=== PATIENT | female | born 1990 | race American Indian/Alaskan Native ===

== ENCOUNTER 2016-10-30 19:40 | Emergency (ER) | payer MEDICAID | END 2016-10-30 23:15 | disposition left against medical advice (07) | LOC: ED 19:40 | DX: M79.89 Other specified soft tissue disorders (principal); Z53.21 Procedure and treatment not carried out due to patient leaving prior to being seen by health care provider ==

== ENCOUNTER 2016-10-31 09:16 | Emergency (ER) | payer MEDICAID ==
[2016-10-31 10:04] VITALS: BP 114/68
--- NOTE | 2016-10-31 12:21 | Emergency Department Report ---
HPI - General Chief Complaint: Headache Time Seen by Provider: 10/31/16 11:57 - HPI HPI: This is a 25-year-old female with past medical history of intermittent migraines who presents to the ED complaining of slight intermittent throbbing/ aching temporal migraine headache that is now resolved is complaining of fourth digit fingertip pain and swelling 2 days. Patient states she noticed that her right fourth digit fingernail tip is tender to touch and mildly swelling on the right side. Patient states she recently got her son other so long and thinks she got an infection from that. She denies suicidal chills/nausea/vomiting/bleeding/any injury/trauma/blurry vision or dizziness ED Past Medical Hx - Past Medical History Previous Medical History?: No - Surgical History Past Surgical History?: No - Social History Smoking Status: Never Smoker Substance Use Type: Other - Medications Home Medications: Home Medications Medication Instructions Recorded Confirmed Last Taken Type Cyclobenzaprine [Flexeril 10mg] 10 mg PO BID PRN #10 tablet 01/15/14 Unknown Rx traMADol [Ultram 50 MG tab] 50 mg PO Q6HR PRN #14 tablet 01/15/14 Unknown Rx Pseudoephed/Cod/Guaifen 5 ml PO TID #1 bottle 12/25/14 Unknown Rx [Robitussin DAC 10-100-30Mg/5Ml] Amoxicillin [Amoxicillin TAB] 875 mg PO BID #20 tablet 02/20/15 Unknown Rx Amoxicillin [Amoxicillin TAB] 875 mg PO BID #20 tablet 01/23/16 Unknown Rx Ibuprofen [Motrin 400 MG tab] 400 mg PO Q8H PRN #20 tablet 01/23/16 Unknown Rx Cephalexin [Keflex] 500 mg PO BID #10 capsule 10/31/16 Unknown Rx Ibuprofen [Motrin 800 MG tab] 800 mg PO Q8HR PRN #20 tablet 10/31/16 Unknown Rx ED Review of Systems ROS: Stated complaint: MIGRANE HEADACHE, RIGHT HAND PAIN Other details as noted in HPI Constitutional: denies: chills, fever Eyes: denies: eye pain, eye discharge, vision change ENT: denies: ear pain, throat pain Respiratory: denies: cough, shortness of breath, wheezing Cardiovascular: denies: chest pain, palpitations Endocrine: no symptoms reported Gastrointestinal: denies: abdominal pain, nausea, diarrhea Genitourinary: denies: urgency, dysuria, discharge Musculoskeletal: denies: back pain, joint swelling, arthralgia Skin: denies: rash, lesions Neurological: denies: headache, weakness, paresthesias Psychiatric: denies: anxiety, depression Hematological/Lymphatic: denies: easy bleeding, easy bruising Physical Exam - Physical Exam Vital Signs: Vital Signs 10/31/16 09:59 Temperature 98 F Pulse Rate 57 L Respiratory 18 Rate Blood Pressure 114/68 O2 Sat by Pulse 99 Oximetry Physical Exam: GENERAL: Alert and oriented x3, no apparent distress, Normal Gait, atraumatic. HEAD: Head is normocephalic and a-traumatic. LUNGS: Symetrical with respiration, No wheezing, no rales or crackles, CTAB. HEART: S1, S2 present, regular rate and rhythm without murmur, no rubs, no gallops. Non tender to palpation EXTREMITIES/MUSCULOSKELETAL: No cyanosis, clubbing, rash, lesions or edema. Full ROM bilaterally. UE/LE Pulses 2+ bilaterally. Finger joints are intact. Mild tenderness palpation of the right fourth digit. No bleeding, NEUROLOGIC: The patient is cooperative with no focal neurologic deficits. Cranial nerves II through XII are grossly intact. Normal speech. Normal sensation in bilateral upper and lower extremities, No loss of sensation, SKIN: Warm and dry, No lesions, No ulceration or induration present. ED Course Vital Signs 10/31/16 09:59 Temperature 98 F Pulse Rate 57 L Respiratory 18 Rate Blood Pressure 114/68 O2 Sat by Pulse 99 Oximetry ED Medical Decision Making - Medical Decision Making 25-year-old female presents a paronychia of the finger ED course: Discussed patient antiemetic medication as prescribed. Discussed antibiotic therapy for the nail bed infection. Discussed with the patient to follow up with primary care physician. Vital signs are normal patient is in no acute murmurs respiratory distress. Patient has a neuro deficit and is neurologically intact. Discussed to avoid stress factors at induced migraine headaches Discussed take medication as needed for headaches. Critical care attestation.: If time is entered above; I have spent that time in minutes in the direct care of this critically ill patient, excluding procedure time. ED Disposition Clinical Impression: Paronychia of finger of right hand Disposition: DC- TO HOME OR SELFCARE Is pt being admited?: No Does the pt Need Aspirin: No Condition: Stable Instructions: Paronychia (ED), Migraine Headache (ED) Additional Instructions: If worsened symptoms return to ED Follow-up to primary care physician is referred Apply heat to finger 3 times a day Prescriptions: Cephalexin [Keflex] 500 mg PO BID #10 capsule Ibuprofen [Motrin 800 MG tab] 800 mg PO Q8HR PRN #20 tablet PRN Reason: Pain Referrals: PRIMARY CARE, [Primary Care Provider] - 3-5 Days PATRICK EARL MD [Staff Physician] - 3-5 Days [facility] [Outside] - 3-5 Days [facility] [Outside] - 3-5 Days [facility] [Outside] - 3-5 Days Forms: Accompanied Note, Work/School Release Form(ED) Time of Disposition: 12:22
== END 2016-10-31 12:46 | disposition home or self-care (01) ==
LOC: ED 09:16
DX: L03.011 Cellulitis of right finger (principal)
CPT/HCPCS: 99282

== ENCOUNTER 2016-12-01 10:39 | Emergency (ER) | payer MEDICAID ==
[2016-12-01 11:26] LABS: Basophils % (Auto) 0.6 % (0.0-1.8); Eosinophils % (Auto) 0.9 % (0.0-4.3); Hematocrit 36.1 % (30.3-42.9); Hemoglobin 12.1 gm/dl (10.1-14.3); Mean Corpuscular HGB Conc 34 % (30-34); Mean Corpuscular Hemoglobin 28 pg (28-32); Mean Corpuscular Volume 83 fl (79-97); Platelet Count 263 K/mm3 (140-440); Red Blood Count 4.33 M/mm3 (3.65-5.03); Red Cell Distribution Width 14.3 % (13.2-15.2); White Blood Count 5.7 K/mm3 (4.5-11.0)
[2016-12-01 11:46] LABS: Alanine Aminotransferase 12 units/L (7-56); Albumin 3.7 g/dL (3.9-5); Alkaline Phosphatase 45 units/L (35-129); Anion Gap 16 mmol/L; BUN/Creatinine Ratio 13; Blood Urea Nitrogen 8 mg/dL (7-17); Calcium 9.1 mg/dL (8.4-10.2); Carbon Dioxide 26 mmol/L (22-30); Chloride 102.3 mmol/L (98-107); Glucose 109 mg/dL (65-100); Lipase 25 units/L (13-60); Sodium 140 mmol/L (137-145); Total Protein 7.5 g/dL (6.3-8.2)
[2016-12-01 11:54] LABS: Bacteria,Urine 1+ /HPF (Negative); Bilirubin,Urine NEG (Negative); Blood,Urine MOD (Negative); Ketones,Urine 20 mg/dL (Negative); Leukocyte Esterase,Urine TR (Negative); Mucus,Urine 3+ /HPF; Nitrite,Urine NEG (Negative); Protein,Urine <15 mg/dL mg/dL (Negative); Urobilinogen,Urine < 2.0 mg/dL (<2.0)
--- NOTE | 2016-12-01 16:37 | Emergency Department Report ---
ED Abdominal Pain HPI - General Chief Complaint: Abdominal Pain Stated Complaint: UPPER ABDOMINAL PAIN Time Seen by Provider: 12/01/16 16:23 Source: patient Mode of arrival: Ambulatory Limitations: No Limitations - History of Present Illness -: Gradual Location: diffuse Migration to: no migration Quality: cramping (GAS-TAKING GAS X) Consistency: intermittent Improves With: nothing Worsens With: nothing Context: foreign travel Associated Symptoms: constipation, other (NORCO FOR HER DENTAL PAIN). denies: nausea, vomiting, diarrhea, fever, chills, dysuria, hematemesis, hematochezia, melena, hematuria, anorexia, syncope - Related Data Previous Rx's Medication Instructions Recorded Last Taken Type Amoxicillin [Trimox CAP] 500 mg PO BID #20 capsule 12/01/16 Unknown Rx Allergies Allergy/AdvReac Type Severity Reaction Status Date / Time No Known Allergies Allergy Verified 09/19/15 02:28 ED Review of Systems ROS: Stated complaint: UPPER ABDOMINAL PAIN Other details as noted in HPI Comment: Unobtainable due to pts medical conditions Constitutional: no symptoms reported, see HPI Eyes: as per HPI ENT: as per HPI, dental pain Respiratory: no symptoms reported, see HPI Cardiovascular: as per HPI Endocrine: no symptoms reported, see HPI Gastrointestinal: as per HPI, abdominal pain, constipation. denies: nausea, vomiting, diarrhea, hematemesis, melena Genitourinary: as per HPI. denies: urgency, dysuria Musculoskeletal: as per HPI. denies: back pain Skin: as per HPI. denies: rash, lesions Neurological: as per HPI. denies: headache, weakness Psychiatric: as per HPI. denies: anxiety, depression Hematological/Lymphatic: as per HPI. denies: easy bleeding ED Past Medical Hx - Past Medical History Previous Medical History?: No - Surgical History Past Surgical History?: No - Social History Smoking Status: Current Every Day Smoker Substance Use Type: None - Medications Home Medications: Home Medications Medication Instructions Recorded Confirmed Last Taken Type Amoxicillin [Trimox CAP] 500 mg PO BID #20 capsule 12/01/16 Unknown Rx ED Physical Exam - General Limitations: No Limitations General appearance: alert - Head Head exam: Present: atraumatic - Eye Eye exam: Present: normal appearance - ENT ENT exam: Present: mucous membranes moist, other (dental caries on norco) - Neck Neck exam: Present: normal inspection - Respiratory Respiratory exam: Present: normal lung sounds bilaterally - Cardiovascular Cardiovascular Exam: Present: regular rate - GI/Abdominal GI/Abdominal exam: Present: soft, normal bowel sounds. Absent: distended, tenderness, guarding, rebound, rigid, diminished bowel sounds, hyperactive bowel sounds, hypoactive bowel sounds, organomegaly, mass, bruit, pulsatile mass , hernia - Rectal Rectal exam: Present: deferred - Extremities Exam Extremities exam: Present: normal inspection - Back Exam Back exam: Present: normal inspection - Neurological Exam Neurological exam: Present: alert, oriented X3 - Psychiatric Psychiatric exam: Present: normal affect, normal mood - Skin Skin exam: Present: warm, dry, intact ED Course Vital Signs 12/01/16 12/01/16 10:54 17:14 Temperature 98.4 F Pulse Rate 63 63 Respiratory 16 18 Rate Blood Pressure 124/66 Blood Pressure 122/68 [Left] O2 Sat by Pulse 100 100 Oximetry - Reevaluation(s) Reevaluation #1: here while her child being seen so she wanted seen too on norco for dental pain and constipated vss nad ambulatory taking po did not know norco did this in addition she reports baseline constipation labs noted exam wnl dc home w dc poc ED Medical Decision Making - Lab Data Result diagrams: 12/01/16 11:14 12/01/16 11:14 - Medical Decision Making SEE NOTE - Differential Diagnosis RO ACUTE ETIOLOGY V CONSTIPATION Critical care attestation.: If time is entered above; I have spent that time in minutes in the direct care of this critically ill patient, excluding procedure time. ED Disposition Clinical Impression: Constipation, Dental caries Disposition: DC-01 TO HOME OR SELFCARE Is pt being admited?: No Does the pt Need Aspirin: No Condition: Stable Instructions: Abdominal Pain (ED) Additional Instructions: hydrate well exercise stop pain pills OVER THE COUNTER MAG CITRATE WILL HELP YOU TO HAVE BM OVER THE COUNTER DUCOLOX SUPPOSITORY FOR CONSTIPATION PRUNE JUICE HIGH FIBER DIET MED ORDERED FOR TOOTH Prescriptions: Amoxicillin [Trimox CAP] 500 mg PO BID #20 capsule Referrals: PRIMARY CARE, [Primary Care Provider] - 3-5 Days Forms: Work/School Release Form(ED) Time of Disposition: 16:34
[2016-12-01 17:15] VITALS: BP 122/68
== END 2016-12-01 17:14 | disposition home or self-care (01) ==
LOC: ED 10:39
DX: K59.00 Constipation, unspecified (principal); K02.9 Dental caries, unspecified; F17.200 Nicotine dependence, unspecified, uncomplicated
CPT/HCPCS: 36415; 80053; 81001; 83690; 84702; 85025; 99283

== ENCOUNTER 2017-04-01 11:15 | Emergency (ER) | payer MEDICAID ==
[2017-04-01 11:23] VITALS: BP 114/71
[2017-04-01] MEDS ORDERED: TORADOL IM ONE (12:55)
--- NOTE | 2017-04-01 12:56 | Emergency Department Report ---
Blank Doc - Documentation Documentation: 26-year-old female in a medical problems with cough, body aches, sore throat 2 days. She did not receive a flu shot. She is not taking [id number] medication. She denies fever. Vital signs normal. Chest x-ray and Toradol ordered. Mid-level to see
--- NOTE | 2017-04-01 13:46 | Emergency Department Report ---
- General Chief Complaint: Upper Respiratory Infection Stated Complaint: FLU LIKE SYMPTOMS Time Seen by Provider: 04/01/17 12:54 Source: patient Mode of arrival: Ambulatory Limitations: No Limitations - History of Present Illness Initial Comments: This is a 26-year-old female nontoxic, well nourished in appearance, no acute signs of distress presents to the ED with c/o of body aches, sore throat, productive cough, rhinorrhea, and nasal congestion x2 days. Patient denies any sick contact. Patient denies getting the flu vaccine. Patient describes productive cough as yellow mucus production. Patient denies any recent travels , long car, recent hospital stays. Patient denies any calf pain or calf tenderness. Patient denies any chest pain, short of breath, fever, chills, nausea, vomiting, hemoptysis, numbness, tingling, headache or stiff neck. Patient states allergies to shellfish and olive extract. Patient denies any PMH. MD Complaint: cough, sore throat, rhinorrhea, nasal congestion, other (body aches) -: days(s) (2) Severity: mild Severity scale (0 -10): 8 Quality: aching Consistency: constant Improves With: nothing Worsens With: nothing Associated Symptoms: rhinorrhea, nasal congestion, sore throat, cough. denies: fever, chills, myalgias, diaphoresis, headache, stiff neck, chest pain, shortness of breath, abdominal pain, nausea, vomiting, diarrhea, dysuria, rash, confusion, right sweats, weight loss, epistaxis, hoarseness, ear pain Treatments Prior to Arrival: none - Related Data Previous Rx's Medication Instructions Recorded Last Taken Type Amoxicillin [Trimox CAP] 500 mg PO BID #20 capsule 12/01/16 Unknown Rx Amoxicillin [Amoxicillin TAB] 875 mg PO BID #20 tablet 04/01/17 Unknown Rx Benzonatate [Tessalon Perle] 100 mg PO Q6H PRN #30 capsule 04/01/17 Unknown Rx Ibuprofen [Motrin] 600 mg PO Q8H PRN #30 tablet 04/01/17 Unknown Rx Oseltamivir [Tamiflu] 75 mg PO BID #14 cap 04/01/17 Unknown Rx Allergies Allergy/AdvReac Type Severity Reaction Status Date / Time No Known Allergies Allergy Verified 04/01/17 11:23 ED Review of Systems ROS: Stated complaint: FLU LIKE SYMPTOMS Other details as noted in HPI Constitutional: denies: chills, fever Eyes: denies: eye pain, eye discharge, vision change ENT: throat pain. denies: ear pain Respiratory: cough. denies: shortness of breath, wheezing Cardiovascular: denies: chest pain, palpitations Endocrine: no symptoms reported Gastrointestinal: denies: abdominal pain, nausea, diarrhea Genitourinary: denies: urgency, dysuria, discharge Musculoskeletal: denies: back pain, joint swelling, arthralgia Skin: denies: rash, lesions Neurological: denies: headache, weakness, paresthesias Psychiatric: denies: anxiety, depression Hematological/Lymphatic: denies: easy bleeding, easy bruising ED Past Medical Hx - Past Medical History Previous Medical History?: No - Surgical History Past Surgical History?: No - Social History Smoking Status: Never Smoker Substance Use Type: None - Medications Home Medications: Home Medications Medication Instructions Recorded Confirmed Last Taken Type Amoxicillin [Trimox CAP] 500 mg PO BID #20 capsule 12/01/16 Unknown Rx Amoxicillin [Amoxicillin TAB] 875 mg PO BID #20 tablet 04/01/17 Unknown Rx Benzonatate [Tessalon Perle] 100 mg PO Q6H PRN #30 capsule 04/01/17 Unknown Rx Ibuprofen [Motrin] 600 mg PO Q8H PRN #30 tablet 04/01/17 Unknown Rx Oseltamivir [Tamiflu] 75 mg PO BID #14 cap 04/01/17 Unknown Rx ED Physical Exam - General Limitations: No Limitations General appearance: alert, in no apparent distress - Head Head exam: Present: atraumatic, normocephalic - Eye Eye exam: Present: normal appearance, PERRL, EOMI Pupils: Present: normal accommodation - ENT ENT exam: Present: mucous membranes moist, TM's normal bilaterally, normal external ear exam - Expanded ENT Exam Expanded Ear exam: Present: normal external inspection Mouth exam: Present: normal external inspection, tongue normal. Absent: drooling, trismus, muffled voice, tongue elevation, laceration Teeth exam: Present: normal inspection Throat exam: Positive: tonsillar erythema, tonsillomegaly (2+), other (Uvula midline. No abscess or swelling noted. ). Negative: tonsillar exudate, R peritonsillar mass, L peritonsillar mass - Neck Neck exam: Present: normal inspection, full ROM. Absent: lymphadenopathy, thyromegaly - Respiratory Respiratory exam: Present: normal lung sounds bilaterally. Absent: respiratory distress, wheezes, rales, rhonchi, stridor, chest wall tenderness, accessory muscle use, decreased breath sounds, prolonged expiratory - Cardiovascular Cardiovascular Exam: Present: regular rate, normal rhythm, normal heart sounds. Absent: irregular rhythm, systolic murmur, diastolic murmur, rubs, gallop - GI/Abdominal GI/Abdominal exam: Present: soft, normal bowel sounds. Absent: distended, tenderness, guarding, rebound, rigid, diminished bowel sounds - Rectal Rectal exam: Present: deferred - Extremities Exam Extremities exam: Present: normal inspection, full ROM, normal capillary refill. Absent: tenderness, pedal edema, joint swelling, calf tenderness - Back Exam Back exam: Present: normal inspection, full ROM. Absent: tenderness, CVA tenderness (R), CVA tenderness (L), muscle spasm, paraspinal tenderness, vertebral tenderness, rash noted - Neurological Exam Neurological exam: Present: alert, oriented X3, CN II-XII intact, normal gait, reflexes normal - Psychiatric Psychiatric exam: Present: normal affect, normal mood - Skin Skin exam: Present: warm, dry, intact, normal color. Absent: rash ED Course Vital Signs 04/01/17 04/01/17 11:20 13:07 Temperature 98.4 F Pulse Rate 92 H Respiratory 16 18 Rate Blood Pressure 114/71 O2 Sat by Pulse 98 Oximetry - Reevaluation(s) Reevaluation #1: 04/01/17 13:43 Patient is speaking in full sentences with no signs of distress noted. - Consultations Consultation #1: 04/01/17 13:43 Patient has been consulted with Dr. Adame about patient history, physical exam, and labs and examined and screened patient and agrees to ED plan of care and discharge plan of care. ED Medical Decision Making - Medical Decision Making This is a 26-year-old female that presents with upper respiratory infection, tonsillitis, and influenza. Patient is stable and was examined by me and Dr. Adame. Chest x-ray has been obtained and dictated by radiologist with normal exam. Patient is notified of x-ray results with no questions noted. Due to patient having symptoms of upper respiratory infection and worsening I will treat patient empirically amox and tamiflu. [facility] is currently out of the flu swabs so I am unable to perform flu swab. Patient is within the >72 hour window for tamiflu. Patient was instructed to increase hydration, rest and take Motrin for fever episodes. Patient received toradol in the ED. Vitals stable. Patient is nonfebrile and normal heart rate. Patient was orally hydrated and patient tolerated well known nausea or vomiting. Patient was instructed Follow-up with a primary care doctor in 3-5 days or if symptoms worsen and continue return to emergency room as soon as possible. At time time of discharge, the patient does not seem toxic or ill in appearance. No acute signs of distress noted. Patient agrees to discharge treatment plan of care. No further questions noted by the patient. Critical care attestation.: If time is entered above; I have spent that time in minutes in the direct care of this critically ill patient, excluding procedure time. ED Disposition Clinical Impression: Influenza, Tonsillitis Upper respiratory infection Qualifiers: URI type: unspecified URI Qualified Code(s): J06.9 - Acute upper respiratory infection, unspecified Disposition: DC- TO HOME OR SELFCARE Is pt being admited?: No Does the pt Need Aspirin: No Condition: Stable Instructions: Ibuprofen (By mouth), Amoxicillin (By mouth), Oseltamivir (By mouth), Electrolyte Supplement (By mouth), Fever in Adults (ED), Influenza (ED) , Upper Respiratory Infection (ED), Tonsillitis (ED) Additional Instructions: Follow-up with a primary care doctor in 3-5 days or if symptoms worsen and continue return to emergency room as soon as possible. Rest, hydrate, and take motrin for Fever as needed. Prescriptions: Amoxicillin [Amoxicillin TAB] 875 mg PO BID #20 tablet Benzonatate [Tessalon Perle] 100 mg PO Q6H PRN #30 capsule PRN Reason: Cough Ibuprofen [Motrin] 600 mg PO Q8H PRN #30 tablet PRN Reason: Fever Oseltamivir [Tamiflu] 75 mg PO BID #14 cap Referrals: PRIMARY CARE, [Primary Care Provider] - 3-5 Days ALY THOMPSON MD [Staff Physician] - 3-5 Days [facility] [Outside] - 3-5 Days [facility] [Outside] - 3-5 Days Forms: Work/School Release Form(ED)
--- NOTE | 2017-04-01 13:47 | XRay Report ---
ROUTINE CHEST, TWO VIEWS: HISTORY: Cough. The trachea, heart, mediastinal contour, lung feldman and bony thorax are unremarkable. IMPRESSION: Unremarkable chest x-ray.
== END 2017-04-01 14:21 | disposition home or self-care (01) ==
LOC: ED 11:15
DX: J11.1 Influenza due to unidentified influenza virus with other respiratory manifestations (principal); J03.90 Acute tonsillitis, unspecified
CPT/HCPCS: 71046; 96372; 99283; J1885

== ENCOUNTER 2017-05-07 19:46 | Emergency (ER) | payer MEDICAID ==
[2017-05-07 20:06] VITALS: BP 130/58
--- NOTE | 2017-05-07 20:30 | Emergency Department Report ---
Minor Respiratory - HPI Chief Complaint: Sore Throat Stated Complaint: SORE THROAT Time Seen by Provider: 05/07/17 20:24 Duration: 1 week Pain Location: Facial Severity: mild Minor Respiratory: Yes Rhinorrhea, Yes Sore Throat, Yes Able to Tolerate Fluids , Yes Cough, Yes Sick Contacts, No Ear Pain, No Hemoptysis, No Chest Pain, No Shortness of Breath, No Fever Other History: Healthy 26-year-old female presents with nasal congestion cough and scratchy throat ED Review of Systems ROS: Stated complaint: SORE THROAT Other details as noted in HPI Constitutional: denies: fever, malaise ENT: throat pain. denies: ear pain Respiratory: cough Cardiovascular: denies: chest pain Gastrointestinal: denies: abdominal pain, nausea, vomiting ED Past Medical Hx - Past Medical History Previous Medical History?: No - Surgical History Past Surgical History?: No - Social History Smoking Status: Never Smoker Substance Use Type: None - Medications Home Medications: Home Medications Medication Instructions Recorded Confirmed Last Taken Type Amoxicillin [Trimox CAP] 500 mg PO BID #20 capsule 12/01/16 Unknown Rx Amoxicillin [Amoxicillin TAB] 875 mg PO BID #20 tablet 04/01/17 Unknown Rx Benzonatate [Tessalon Perle] 100 mg PO Q6H PRN #30 capsule 04/01/17 Unknown Rx Ibuprofen [Motrin] 600 mg PO Q8H PRN #30 tablet 04/01/17 Unknown Rx Oseltamivir [Tamiflu] 75 mg PO BID #14 cap 04/01/17 Unknown Rx Minor Respiratory Exam - Exam General: Vital signs noted. No distress. Alert and acting appropriately. HEENT: Yes Moist Mucous Membranes, Yes Rhinorrhea, No Pharyngeal Erythema, No Pharyngeal Exudates, No Conjuctival Injection Neck: Yes Supple Lungs: Yes Good Air Exchange, No Wheezes, No Ronchi, No Stridor, No Cough, No Labored Respirations, No Retractions, No Use of Accessory Muscles, No Other Abnormal Lung Sounds Heart: Yes Regular, No Murmur Abdomen: No Tenderness Neurologic: Alert and oriented, no deficits. Musculoskeletal: Unremarkable. ED Course Vital Signs 05/07/17 20:04 Temperature 97.9 F Pulse Rate 86 Respiratory 14 Rate Blood Pressure 130/58 O2 Sat by Pulse 100 Oximetry ED Medical Decision Making - Medical Decision Making Ms. Casillas presents with scratchy throat due to postnasal drip. Recommended loratadine or Zyrtec [id number]. Critical care attestation.: If time is entered above; I have spent that time in minutes in the direct care of this critically ill patient, excluding procedure time. ED Disposition Clinical Impression: Pharyngitis, URI (upper respiratory infection) Disposition: DC-01 TO HOME OR SELFCARE Is pt being admited?: No Does the pt Need Aspirin: No Condition: Stable Instructions: Pharyngitis (ED), Upper Respiratory Infection (ED) Forms: Work/School Release Form(ED) Time of Disposition: 20:30
== END 2017-05-07 20:32 | disposition home or self-care (01) ==
LOC: ED 19:46
DX: J02.9 Acute pharyngitis, unspecified (principal)
CPT/HCPCS: 99282

== ENCOUNTER 2017-07-21 00:18 | Emergency (ER) | payer MEDICAID ==
--- NOTE | 2017-07-21 07:50 | Emergency Department Report ---
ED Rash HPI - HPI Chief Complaint: Skin Rash Stated Complaint: RASH Time Seen by Provider: 07/21/17 07:35 Duration: 2 Days Suspected Cause: Unknown Rash Symptoms: Yes Itching, Yes Blistering, No Facial Swelling, No Tongue/Oral Swelling, No Breathing Difficulties, No Choking Sensation, No Wheezing/Dyspnea, No Peeling, No Fever, No Lightheaded, No Malaise, No Myalgias Severity: mild Other History: This is a 26-year-old female nontoxic, well nourished in appearance, no acute signs of distress presents to the ED with c/o of left lateral lip blisters and itching. Patient denies any trauma. Patient deneis any fever, chills, nausea, vomiting, chest pain, shortness of breath, headache, stiff neck. Patient denies any recent travels along cause. Denies any allergies or significant past medical history. ED Review of Systems ROS: Stated complaint: RASH Other details as noted in HPI Constitutional: denies: chills, fever Eyes: denies: eye pain, eye discharge, vision change ENT: denies: ear pain, throat pain Respiratory: denies: cough, shortness of breath, wheezing Cardiovascular: denies: chest pain, palpitations Endocrine: no symptoms reported Gastrointestinal: denies: abdominal pain, nausea, diarrhea Genitourinary: denies: urgency, dysuria, discharge Musculoskeletal: denies: back pain, joint swelling, arthralgia Skin: denies: rash, lesions Neurological: denies: headache, weakness, paresthesias Psychiatric: denies: anxiety, depression Hematological/Lymphatic: denies: easy bleeding, easy bruising ED Past Medical Hx - Past Medical History Previous Medical History?: No - Surgical History Past Surgical History?: No - Social History Smoking Status: Current Every Day Smoker Substance Use Type: None - Medications Home Medications: Home Medications Medication Instructions Recorded Confirmed Last Taken Type Amoxicillin [Trimox CAP] 500 mg PO BID #20 capsule 12/01/16 Unknown Rx Amoxicillin [Amoxicillin TAB] 875 mg PO BID #20 tablet 04/01/17 Unknown Rx Benzonatate [Tessalon Perle] 100 mg PO Q6H PRN #30 capsule 04/01/17 Unknown Rx Ibuprofen [Motrin] 600 mg PO Q8H PRN #30 tablet 04/01/17 Unknown Rx Oseltamivir [Tamiflu] 75 mg PO BID #14 cap 04/01/17 Unknown Rx Docosanol [Abreva] 1 applicatio TP 5XD #1 cream..g. 07/21/17 Unknown Rx Rash Exam - Exam General: Vital signs noted. No distress. Alert and acting appropriately. HEENT: No Periorbital Edema, No Conjuctival Injection, No Chemosis, No Perioral Edema, No Tongue Edema, No Uvular Edema, No Compromised Airway, No Drooling Lungs: Yes Good Air Exchange (Normal Breath Sounds), No Wheezes, No Ronchi, No Stridor, No Cough, No Labored Respirations, No Retractions, No Use of Accessory Muscles, No Other Abnormal Lung Sounds Heart: Yes Regular, No Murmur Skin: Yes Other (small /blisteringpustules to left lateral lip with crusting), No Urticarial Rash, No Maculopapular Rash, No Morbilliform rash, No Bulla(e), No Excoriations, No Weeping, No Tenderness, No Erythema, No Edema, No Encrustations Other: Positive: Abdomen Normal, Neurologic Normal, Musculoskeletal Normal ED Course Vital Signs 07/21/17 00:32 Temperature 98.7 F Pulse Rate 96 H Respiratory 14 Rate Blood Pressure 126/81 O2 Sat by Pulse 98 Oximetry - Reevaluation(s) Reevaluation #1: 07/21/17 07:51 Patient is speaking in full sentences with no signs of distress noted. Critical care attestation.: If time is entered above; I have spent that time in minutes in the direct care of this critically ill patient, excluding procedure time. ED Disposition Clinical Impression: Oral herpes simplex infection Disposition: DC- TO HOME OR SELFCARE Is pt being admited?: No Does the pt Need Aspirin: No Condition: Stable Instructions: Oral Herpes Simplex Virus Infections (ED) Additional Instructions: Follow-up with a primary care doctor in 3-5 days or if symptoms worsen and continue return to emergency room as soon as possible. Prescriptions: Docosanol [Abreva] 1 applicatio TP 5XD #1 cream..g. Referrals: PRIMARY CARE, [Primary Care Provider] - 3-5 Days ALY THOMPSON MD [Staff Physician] - 3-5 Days [facility] [Outside] - 3-5 Days [facility] [Outside] - 3-5 Days Forms: Work/School Release Form(ED)
[2017-07-21 08:27] VITALS: BP 123/70
== END 2017-07-21 08:26 | disposition home or self-care (01) ==
LOC: ED 00:18
DX: R21 Rash and other nonspecific skin eruption (principal)
CPT/HCPCS: 99282

== ENCOUNTER 2018-05-26 19:44 | Emergency (ER) | payer MEDICAID ==
--- NOTE | 2018-05-26 21:03 | Emergency Department Report ---
Chief Complaint: Extremity Problem,Nontraumatic Stated Complaint: LEFT SWOLLEN ANKLE WITH PAIN Time Seen by Provider: 05/26/18 21:01 - HPI History of Present Illness: pt presents with edema to the left ankle and left ankle pain that began this morning denies any injury, fall, or trauma states it just began this morning neurovascularly intact - Exam Vital Signs: Vital Signs 05/26/18 05/26/18 20:05 20:54 Temperature 98.5 F 98.5 F Pulse Rate 68 69 Respiratory 18 18 Rate Blood Pressure 131/51 131/57 O2 Sat by Pulse 100 99 Oximetry MSE screening note: Focused history performed Due to findings the following was ordered: XR left ankle, Urine preg ED Disposition for MSE Condition: Stable
[2018-05-26 21:33] LABS: HCG Qualitative,Urine Negative (Negative)
[2018-05-26] MEDS ORDERED: IBUPROFEN PO ONE (22:33)
[2018-05-26] MEDS ORDERED: IBUPROFEN ONE (22:36)
--- NOTE | 2018-05-26 22:54 | XRay Report ---
PROCEDURE: XR ANKLE 3+V LT TECHNIQUE: Left ankle radiographs, AP, lateral, and oblique views. HISTORY: left ankle pain and edema COMPARISONS: None . FINDINGS: Fracture (s) and/or Dislocation(s): None . Alignment: Normal . Joint space(s): Normal . Soft tissues: Normal . Bone mineralization: Normal . Foreign bodies: None . Calcaneal spurring: None . IMPRESSION: Normal Examination . This document is electronically signed by Liang Tejada MD., May 26 2018 10:52:32 PM ET
[2018-05-26] MEDS ORDERED: DELTASONE PO STA (23:37)
[2018-05-26] MEDS ORDERED: PERCOCET 5/325 PO STA (23:37)
--- NOTE | 2018-05-27 00:19 | Emergency Department Report ---
ED Lower Extremity HPI - General Chief Complaint: Extremity Problem,Nontraumatic Stated Complaint: LEFT SWOLLEN ANKLE WITH PAIN Time Seen by Provider: 05/26/18 21:01 Source: patient Mode of arrival: Ambulatory Limitations: No Limitations - History of Present Illness MD Complaint: ankle injury Injury: Ankle: Left Type of Injury: unknown Place: home Severity: moderate Improves With: nothing Worsens With: nothing Context: other Other Symptoms: other Associated Symptoms: able to partially bear weight. denies: swelling, numbness, tingling, unable to bear weight - Related Data Previous Rx's Medication Instructions Recorded Last Taken Type Amoxicillin [Trimox CAP] 500 mg PO BID #20 capsule 12/01/16 Unknown Rx Amoxicillin [Amoxicillin TAB] 875 mg PO BID #20 tablet 04/01/17 Unknown Rx Benzonatate [Tessalon Perle] 100 mg PO Q6H PRN #30 capsule 04/01/17 Unknown Rx Ibuprofen [Motrin] 600 mg PO Q8H PRN #30 tablet 04/01/17 Unknown Rx Oseltamivir [Tamiflu] 75 mg PO BID #14 cap 04/01/17 Unknown Rx Docosanol [Abreva] 1 applicatio TP 5XD #1 cream..g. 07/21/17 Unknown Rx Acetaminophen/Codeine [Tylenol 1 tab PO Q6H PRN #7 tab 05/26/18 Unknown Rx /Codeine # 3 tab] Colchicine 0.6 mg PO Q2HR #10 capsule 05/26/18 Unknown Rx Indomethacin 50 mg PO Q8H #10 capsule 05/26/18 Unknown Rx Allergies Allergy/AdvReac Type Severity Reaction Status Date / Time No Known Allergies Allergy Verified 05/07/17 20:04 ED Review of Systems ROS: Stated complaint: LEFT SWOLLEN ANKLE WITH PAIN Other details as noted in HPI Constitutional: denies: chills, fever Eyes: denies: eye pain, eye discharge, vision change ENT: denies: ear pain, throat pain Respiratory: denies: cough, shortness of breath, wheezing Cardiovascular: denies: chest pain, palpitations Endocrine: no symptoms reported Gastrointestinal: denies: abdominal pain, nausea, diarrhea Genitourinary: denies: urgency, dysuria, discharge Musculoskeletal: arthralgia. denies: back pain, joint swelling Skin: denies: rash, lesions Neurological: denies: headache, weakness, paresthesias Psychiatric: denies: anxiety, depression Hematological/Lymphatic: denies: easy bleeding, easy bruising ED Past Medical Hx - Past Medical History Previous Medical History?: No - Surgical History Past Surgical History?: No - Social History Smoking Status: Current Every Day Smoker Substance Use Type: None - Medications Home Medications: Home Medications Medication Instructions Recorded Confirmed Last Taken Type Amoxicillin [Trimox CAP] 500 mg PO BID #20 capsule 12/01/16 Unknown Rx Amoxicillin [Amoxicillin TAB] 875 mg PO BID #20 tablet 04/01/17 Unknown Rx Benzonatate [Tessalon Perle] 100 mg PO Q6H PRN #30 capsule 04/01/17 Unknown Rx Ibuprofen [Motrin] 600 mg PO Q8H PRN #30 tablet 04/01/17 Unknown Rx Oseltamivir [Tamiflu] 75 mg PO BID #14 cap 04/01/17 Unknown Rx Docosanol [Abreva] 1 applicatio TP 5XD #1 cream..g. 07/21/17 Unknown Rx Acetaminophen/Codeine [Tylenol 1 tab PO Q6H PRN #7 tab 05/26/18 Unknown Rx /Codeine # 3 tab] Colchicine 0.6 mg PO Q2HR #10 capsule 05/26/18 Unknown Rx Indomethacin 50 mg PO Q8H #10 capsule 05/26/18 Unknown Rx ED Physical Exam - General Limitations: No Limitations General appearance: alert, in no apparent distress - Head Head exam: Present: atraumatic, normocephalic - Eye Eye exam: Present: normal appearance, PERRL, EOMI Pupils: Present: normal accommodation - ENT ENT exam: Present: normal exam, normal orophraynx, mucous membranes moist, TM's normal bilaterally - Neck Neck exam: Present: normal inspection, full ROM - Respiratory Respiratory exam: Present: normal lung sounds bilaterally. Absent: respiratory distress - Cardiovascular Cardiovascular Exam: Present: regular rate, normal rhythm. Absent: systolic murmur, diastolic murmur, rubs, gallop - GI/Abdominal GI/Abdominal exam: Present: soft, normal bowel sounds - Extremities Exam Extremities exam: Present: normal inspection, tenderness (to the anterior tendons of the ankle with palpation. There is some discomfort with inversion and eversion as well. Full range of motion is noted. No Achilles tendon pain. Payne's test is normal. There is no abrasion. No cellulitis. No rashes were appreciated. Pulses 2+2 dorsalis pedis and posterior tibialis.), normal capillary refill. Absent: pedal edema, calf tenderness - Back Exam Back exam: Present: normal inspection, full ROM. Absent: CVA tenderness (R), CVA tenderness (L) - Neurological Exam Neurological exam: Present: alert, oriented X3, CN II-XII intact, normal gait - Psychiatric Psychiatric exam: Present: normal affect, normal mood - Skin Skin exam: Present: warm, dry, intact, normal color. Absent: rash ED Course Vital Signs 05/26/18 05/26/18 20:05 20:54 Temperature 98.5 F 98.5 F Pulse Rate 68 69 Respiratory 18 18 Rate Blood Pressure 131/51 131/57 O2 Sat by Pulse 100 99 Oximetry Critical care attestation.: If time is entered above; I have spent that time in minutes in the direct care of this critically ill patient, excluding procedure time. ED Disposition Clinical Impression: Tendinopathy, Ankle pain Disposition: TO HOME OR SELFCARE Is pt being admited?: No Does the pt Need Aspirin: No Condition: Stable Instructions: Arthralgia (ED), Acute Gouty Arthritis (ED), Ice Pack Application (ED) Additional Instructions: . Follow with primary care provider or orthopedic in 3-5 days for reevaluation and may and refrain from weight bearing sinuous activity for the next 48 hours. Ice the area per the patient education guidelines listed in his past. Prescriptions: Colchicine 0.6 mg PO Q2HR #10 capsule Indomethacin 50 mg PO Q8H #10 capsule Acetaminophen/Codeine [Tylenol /Codeine # 3 tab] 1 tab PO Q6H PRN #7 tab PRN Reason: Pain , Severe (7-10) Referrals: DES JOHNSON MD [Primary Care Provider] - 3-5 Days
[2018-05-27 19:40] VITALS: BP 131/57
== END 2018-05-27 00:14 | disposition home or self-care (01) ==
LOC: ED 19:44
DX: M77.9 Enthesopathy, unspecified (principal); M25.572 Pain in left ankle and joints of left foot; F17.200 Nicotine dependence, unspecified, uncomplicated
CPT/HCPCS: 73610; 81025; 99284; J7512

== ENCOUNTER 2018-11-04 20:23 | Emergency (ER) | payer MEDICAID ==
--- NOTE | 2018-11-04 20:50 | Event Note ---
ED Screening Note Date of service: 11/04/18 Time: 20:48 ED Screening Note: 27 y o female presents with pelvic pressure with urination x 1 week This initial assessment/diagnostic orders/clinical plan/treatment(s) is/are subject to change based on patients health status, clinical progression and re- assessment by fellow clinical providers in the ED. Further treatment and workup at subsequent clinical providers discretion. Patient/guardian urged not to elope from the ED as their condition may be serious if not clinically assessed and managed. Initial orders include: ua,upt
[2018-11-04 22:19] LABS: HCG Qualitative,Urine Negative (Negative)
[2018-11-04 22:22] LABS: Bilirubin,Urine NEG (Negative); Blood,Urine MOD (Negative); Color,Urine Yellow (Yellow); Mucus,Urine 3+ /HPF
--- NOTE | 2018-11-04 22:42 | Emergency Department Report ---
ED Female HPI - General Chief complaint: Urogenital-Female Stated complaint: FREQUENT URINATION/ABD PAIN Time Seen by Provider: 11/04/18 20:48 Source: patient Mode of arrival: Ambulatory Limitations: No Limitations - History of Present Illness Initial comments: pt is a 27 yo female who presents to the ED with c/o dysuria that began a week ago. she has associated urinary frequency and states she has suprapubic discomfort which she describes as a pressure. pt states that she constantly feels like she has to urinate and then she only has small amounts. she denies any fever, back pain, N/V/D, vaginal discharge, or vaginal irritation. she states she is currently on her menstrual cycle. she denies any PMHx or allergies to meds. - Related Data Previous Rx's Medication Instructions Recorded Last Taken Type Amoxicillin [Trimox CAP] 500 mg PO BID #20 capsule 12/01/16 Unknown Rx Amoxicillin [Amoxicillin TAB] 875 mg PO BID #20 tablet 04/01/17 Unknown Rx Benzonatate [Tessalon Perle] 100 mg PO Q6H PRN #30 capsule 04/01/17 Unknown Rx Ibuprofen [Motrin] 600 mg PO Q8H PRN #30 tablet 04/01/17 Unknown Rx Oseltamivir [Tamiflu] 75 mg PO BID #14 cap 04/01/17 Unknown Rx Docosanol [Abreva] 1 applicatio TP 5XD #1 cream..g. 07/21/17 Unknown Rx Acetaminophen/Codeine [Tylenol 1 tab PO Q6H PRN #7 tab 05/26/18 Unknown Rx /Codeine # 3 tab] Colchicine 0.6 mg PO Q2HR #10 capsule 05/26/18 Unknown Rx Indomethacin 50 mg PO Q8H #10 capsule 05/26/18 Unknown Rx Ibuprofen [Motrin 800 MG tab] 800 mg PO Q8HR PRN #14 tablet 11/04/18 Unknown Rx cephALEXin [Keflex] 500 mg PO BID 7 Days #14 cap 11/04/18 Unknown Rx Allergies Allergy/AdvReac Type Severity Reaction Status Date / Time No Known Allergies Allergy Verified 05/07/17 20:04 ED Review of Systems ROS: Stated complaint: FREQUENT URINATION/ABD PAIN Other details as noted in HPI Comment: All other systems reviewed and negative ED Past Medical Hx - Past Medical History Previous Medical History?: No - Surgical History Past Surgical History?: No - Social History Smoking Status: Never Smoker - Medications Home Medications: Home Medications Medication Instructions Recorded Confirmed Last Taken Type Amoxicillin [Trimox CAP] 500 mg PO BID #20 capsule 12/01/16 Unknown Rx Amoxicillin [Amoxicillin TAB] 875 mg PO BID #20 tablet 04/01/17 Unknown Rx Benzonatate [Tessalon Perle] 100 mg PO Q6H PRN #30 capsule 04/01/17 Unknown Rx Ibuprofen [Motrin] 600 mg PO Q8H PRN #30 tablet 04/01/17 Unknown Rx Oseltamivir [Tamiflu] 75 mg PO BID #14 cap 04/01/17 Unknown Rx Docosanol [Abreva] 1 applicatio TP 5XD #1 cream..g. 07/21/17 Unknown Rx Acetaminophen/Codeine [Tylenol 1 tab PO Q6H PRN #7 tab 05/26/18 Unknown Rx /Codeine # 3 tab] Colchicine 0.6 mg PO Q2HR #10 capsule 05/26/18 Unknown Rx Indomethacin 50 mg PO Q8H #10 capsule 05/26/18 Unknown Rx Ibuprofen [Motrin 800 MG tab] 800 mg PO Q8HR PRN #14 tablet 11/04/18 Unknown Rx cephALEXin [Keflex] 500 mg PO BID 7 Days #14 cap 11/04/18 Unknown Rx ED Physical Exam - General Limitations: No Limitations General appearance: alert, in no apparent distress - Head Head exam: Present: atraumatic, normocephalic - Eye Eye exam: Present: normal appearance - ENT ENT exam: Present: mucous membranes moist - Respiratory Respiratory exam: Present: normal lung sounds bilaterally. Absent: respiratory distress, wheezes, rales, rhonchi, stridor, chest wall tenderness, accessory muscle use, decreased breath sounds, prolonged expiratory - Cardiovascular Cardiovascular Exam: Present: regular rate, normal rhythm, normal heart sounds. Absent: systolic murmur, diastolic murmur, rubs, gallop - GI/Abdominal GI/Abdominal exam: Present: soft, normal bowel sounds. Absent: distended, tenderness, guarding, rebound, rigid - Back Exam Back exam: Absent: CVA tenderness (R), CVA tenderness (L) - Neurological Exam Neurological exam: Present: alert, oriented X3 - Psychiatric Psychiatric exam: Present: normal affect, normal mood - Skin Skin exam: Present: warm, dry, intact ED Course Vital Signs 11/04/18 11/04/18 20:49 22:55 Temperature 98.8 F 98.8 F Pulse Rate 112 H 69 Respiratory 18 18 Rate Blood Pressure 157/80 Blood Pressure 119/62 [Left] O2 Sat by Pulse 97 99 Oximetry ED Medical Decision Making - Lab Data Lab Results 11/04/18 Range/Units 21:39 Urine Color Yellow (Yellow) Urine Turbidity Slightly-cloudy (Clear) Urine pH 5.0 (5.0-7.0) Ur Specific [place] 1.031 H (1.003-1.030) Urine Protein 100 mg/dl (Negative) mg/dL Urine Glucose (UA) Neg (Negative) mg/dL Urine Ketones Tr (Negative) mg/dL Urine Blood Mod (Negative) Urine Nitrite Neg (Negative) Ur Reducing Substances Not Reportable Urine Bilirubin Neg (Negative) Urine Ictotest Not Reportable Urine Urobilinogen 2.0 (<2.0) mg/dL Ur Leukocyte Esterase Tr (Negative) Urine WBC (Auto) 17.0 H (0.0-6.0) /HPF Urine RBC (Auto) 60.0 (0.0-6.0) /HPF U Epithel Cells (Auto) 17.0 H (0-13.0) /HPF Urine Mucus 3+ /HPF Urine HCG, Qual Negative (Negative) - Medical Decision Making pt is a 27 yo female who presents to the ED with c/o dysuria that began a week ago. she has associated urinary frequency and states she has suprapubic discomfort which she describes as a pressure. pt states that she constantly feels like she has to urinate and then she only has small amounts. she denies any fever, back pain, N/V/D, vaginal discharge, or vaginal irritation. she states she is currently on her menstrual cycle. she denies any PMHx or allergies to meds. initial vitals in triage with mildly elevated HR and blood pressure which improved to normal on repeat vitals. no abd tenderness or CVAT on exam. UA with WBCs, leukocyte esterase, blood present from patients menstrual cycle. pt given prescription for keflex and ibuprofen. advised pt to please take medication as prescribed to completion. please increase your fluid intake over the next several days. may take tylenol or ibuprofen for discomfort. follow up with a primary care doctor in the next 2-3 days. return to the emergency room for any new or worsening symptoms. Critical care attestation.: If time is entered above; I have spent that time in minutes in the direct care of this critically ill patient, excluding procedure time. ED Disposition Clinical Impression: UTI (urinary tract infection) Qualifiers: Urinary tract infection type: acute cystitis Hematuria presence: with hematuria Qualified Code(s): N30.01 - Acute cystitis with hematuria Disposition: TO HOME OR SELFCARE Is pt being admited?: No Does the pt Need Aspirin: No Condition: Stable Instructions: Urinary Tract Infection in Women (ED) Additional Instructions: please take medication as prescribed to completion. please increase your fluid intake over the next several days. may take tylenol or ibuprofen for discomfort. follow up with a primary care doctor in the next 2-3 days. return to the emergency room for any new or worsening symptoms. Prescriptions: cephALEXin [Keflex] 500 mg PO BID 7 Days #14 cap Ibuprofen [Motrin 800 MG tab] 800 mg PO Q8HR PRN #14 tablet PRN Reason: pain Referrals: [facility] [Provider Group] - 2-3 Days [facility] [Outside] - 2-3 Days Time of Disposition: 22:40 Print Language: INDIAN
[2018-11-05 00:03] VITALS: BP 119/62
== END 2018-11-04 22:55 | disposition home or self-care (01) ==
LOC: ED 20:23
DX: N39.0 Urinary tract infection, site not specified (principal); Z79.899 Other long term (current) drug therapy
CPT/HCPCS: 81001; 81025; 87076; 87086; 87186

== ENCOUNTER 2019-02-26 10:29 | Emergency (ER) | payer MEDICAID ==
[2019-02-26 10:42] VITALS: BP 132/77
--- NOTE | 2019-02-26 11:25 | Emergency Department Report ---
ED ENT HPI - General Chief complaint: Sore Throat Stated complaint: WHITE SPOTS/TONSILS/PAIN Time Seen by Provider: 02/26/19 11:19 Source: patient Mode of arrival: Ambulatory Limitations: No Limitations - History of Present Illness Initial comments: This is a 28-year-old female nontoxic well in appearance with no signs of distress presents to the ED with complaint of sore throat. Patient denies any drooling or hoarseness. Patient denies any other symptoms. Denies any fever, chills, headache, nausea, vomiting, chest pain or SOB. Denies any other complaints. MD complaint: sore throat -: days(s) Location: throat Severity: mild Severity scale (0 -10): 8 Quality: aching Consistency: constant Improves with: none Worsens with: swallowing Associated Symptoms: pain with swallowing, sore throat. denies: fever, cough, gum swelling, toothache, tinnitus, hearing loss, discharge from ear, rhinorrhea - Related Data Previous Rx's Medication Instructions Recorded Last Taken Type Amoxicillin [Trimox CAP] 500 mg PO BID #20 capsule 12/01/16 Unknown Rx Amoxicillin [Amoxicillin TAB] 875 mg PO BID #20 tablet 04/01/17 Unknown Rx Benzonatate [Tessalon Perle] 100 mg PO Q6H PRN #30 capsule 04/01/17 Unknown Rx Ibuprofen [Motrin] 600 mg PO Q8H PRN #30 tablet 04/01/17 Unknown Rx Oseltamivir [Tamiflu] 75 mg PO BID #14 cap 04/01/17 Unknown Rx Docosanol [Abreva] 1 applicatio TP 5XD #1 cream..g. 07/21/17 Unknown Rx Acetaminophen/Codeine [Tylenol 1 tab PO Q6H PRN #7 tab 05/26/18 Unknown Rx /Codeine # 3 tab] Colchicine 0.6 mg PO Q2HR #10 capsule 05/26/18 Unknown Rx Indomethacin 50 mg PO Q8H #10 capsule 05/26/18 Unknown Rx Ibuprofen [Motrin 800 MG tab] 800 mg PO Q8HR PRN #14 tablet 11/04/18 Unknown Rx cephALEXin [Keflex] 500 mg PO BID 7 Days #14 cap 11/04/18 Unknown Rx Amoxicillin [Amoxicillin TAB] 875 mg PO BID #20 tablet 02/26/19 Unknown Rx Ibuprofen [Motrin] 600 mg PO Q8H PRN #20 tablet 02/26/19 Unknown Rx Allergies Allergy/AdvReac Type Severity Reaction Status Date / Time No Known Allergies Allergy Verified 05/07/17 20:04 ED Dental HPI - General Chief complaint: Sore Throat Stated complaint: WHITE SPOTS/TONSILS/PAIN Time Seen by Provider: 02/26/19 11:19 Source: patient Mode of arrival: Ambulatory Limitations: No Limitations - Related Data Previous Rx's Medication Instructions Recorded Last Taken Type Amoxicillin [Trimox CAP] 500 mg PO BID #20 capsule 12/01/16 Unknown Rx Amoxicillin [Amoxicillin TAB] 875 mg PO BID #20 tablet 04/01/17 Unknown Rx Benzonatate [Tessalon Perle] 100 mg PO Q6H PRN #30 capsule 04/01/17 Unknown Rx Ibuprofen [Motrin] 600 mg PO Q8H PRN #30 tablet 04/01/17 Unknown Rx Oseltamivir [Tamiflu] 75 mg PO BID #14 cap 04/01/17 Unknown Rx Docosanol [Abreva] 1 applicatio TP 5XD #1 cream..g. 07/21/17 Unknown Rx Acetaminophen/Codeine [Tylenol 1 tab PO Q6H PRN #7 tab 05/26/18 Unknown Rx /Codeine # 3 tab] Colchicine 0.6 mg PO Q2HR #10 capsule 05/26/18 Unknown Rx Indomethacin 50 mg PO Q8H #10 capsule 05/26/18 Unknown Rx Ibuprofen [Motrin 800 MG tab] 800 mg PO Q8HR PRN #14 tablet 11/04/18 Unknown Rx cephALEXin [Keflex] 500 mg PO BID 7 Days #14 cap 11/04/18 Unknown Rx Amoxicillin [Amoxicillin TAB] 875 mg PO BID #20 tablet 02/26/19 Unknown Rx Ibuprofen [Motrin] 600 mg PO Q8H PRN #20 tablet 02/26/19 Unknown Rx Allergies Allergy/AdvReac Type Severity Reaction Status Date / Time No Known Allergies Allergy Verified 05/07/17 20:04 ED Review of Systems ROS: Stated complaint: WHITE SPOTS/TONSILS/PAIN Other details as noted in HPI Constitutional: denies: chills, fever Eyes: denies: eye pain, eye discharge, vision change ENT: throat pain. denies: ear pain Respiratory: denies: cough, shortness of breath, wheezing Cardiovascular: denies: chest pain, palpitations Endocrine: no symptoms reported Gastrointestinal: denies: abdominal pain, nausea, diarrhea Genitourinary: denies: urgency, dysuria, discharge Musculoskeletal: denies: back pain, joint swelling, arthralgia Skin: denies: rash, lesions Neurological: denies: headache, weakness, paresthesias Psychiatric: denies: anxiety, depression Hematological/Lymphatic: denies: easy bleeding, easy bruising ED Past Medical Hx - Past Medical History Previous Medical History?: No - Surgical History Past Surgical History?: Yes Additional Surgical History: ectopic - Social History Smoking Status: Never Smoker Substance Use Type: None - Medications Home Medications: Home Medications Medication Instructions Recorded Confirmed Last Taken Type Amoxicillin [Trimox CAP] 500 mg PO BID #20 capsule 12/01/16 Unknown Rx Amoxicillin [Amoxicillin TAB] 875 mg PO BID #20 tablet 04/01/17 Unknown Rx Benzonatate [Tessalon Perle] 100 mg PO Q6H PRN #30 capsule 04/01/17 Unknown Rx Ibuprofen [Motrin] 600 mg PO Q8H PRN #30 tablet 04/01/17 Unknown Rx Oseltamivir [Tamiflu] 75 mg PO BID #14 cap 04/01/17 Unknown Rx Docosanol [Abreva] 1 applicatio TP 5XD #1 cream..g. 07/21/17 Unknown Rx Acetaminophen/Codeine [Tylenol 1 tab PO Q6H PRN #7 tab 05/26/18 Unknown Rx /Codeine # 3 tab] Colchicine 0.6 mg PO Q2HR #10 capsule 05/26/18 Unknown Rx Indomethacin 50 mg PO Q8H #10 capsule 05/26/18 Unknown Rx Ibuprofen [Motrin 800 MG tab] 800 mg PO Q8HR PRN #14 tablet 11/04/18 Unknown Rx cephALEXin [Keflex] 500 mg PO BID 7 Days #14 cap 11/04/18 Unknown Rx Amoxicillin [Amoxicillin TAB] 875 mg PO BID #20 tablet 02/26/19 Unknown Rx Ibuprofen [Motrin] 600 mg PO Q8H PRN #20 tablet 02/26/19 Unknown Rx ED Physical Exam - General Limitations: No Limitations General appearance: alert, in no apparent distress - Head Head exam: Present: atraumatic, normocephalic - Expanded ENT Exam Expanded Ear exam: Present: normal external inspection Mouth exam: Present: normal external inspection. Absent: drooling, trismus, muffled voice Teeth exam: Present: normal inspection Throat exam: Positive: tonsillar erythema, other (uvula midline). Negative: tonsillomegaly, tonsillar exudate, R peritonsillar mass, L peritonsillar mass - Neck Neck exam: Present: normal inspection, full ROM. Absent: tenderness, meningismus, lymphadenopathy - Extremities Exam Extremities exam: Present: full ROM - Back Exam Back exam: Present: normal inspection, full ROM - Neurological Exam Neurological exam: Present: alert, oriented X3, normal gait - Psychiatric Psychiatric exam: Present: normal affect, normal mood - Skin Skin exam: Present: warm, dry, intact, normal color. Absent: rash ED Course Vital Signs 02/26/19 02/26/19 10:40 10:53 Temperature 98.6 F 98.6 F Pulse Rate 68 61 Respiratory 16 16 Rate Blood Pressure 132/77 132/77 O2 Sat by Pulse 98 100 Oximetry - Reevaluation(s) Reevaluation #1: 02/26/19 11:21 Patient is speaking in full sentences with no signs of distress noted. ED Medical Decision Making - Medical Decision Making Patient was instructed to Follow-up with a primary care doctor in 3-5 days or if symptoms worsen and continue return to emergency room as soon as possible. At time of discharge, the patient does not seem toxic or ill in appearance. No acute signs of distress noted. Patient agrees to discharge treatment plan of care. No further questions noted by the patient. Critical care attestation.: If time is entered above; I have spent that time in minutes in the direct care of this critically ill patient, excluding procedure time. ED Disposition Clinical Impression: Pharyngitis Qualifiers: Pharyngitis/tonsillitis etiology: unspecified etiology Qualified Code(s): J02.9 - Acute pharyngitis, unspecified Disposition: - TO HOME OR SELFCARE Is pt being admited?: No Does the pt Need Aspirin: No Condition: Stable Instructions: Pharyngitis (ED) Additional Instructions: Follow-up with a primary care doctor in 3-5 days or if symptoms worsen and continue return to emergency room as soon as possible. Prescriptions: Amoxicillin [Amoxicillin TAB] 875 mg PO BID #20 tablet Ibuprofen [Motrin] 600 mg PO Q8H PRN #20 tablet PRN Reason: Pain Referrals: PRIMARY [facility] [Referring] - 3-5 Days ELAN BARAHONA MD [Staff Physician] - 3-5 Days [facility] [Outside] - 3-5 Days Forms: Work/School Release Form(ED)
== END 2019-02-26 11:33 | disposition home or self-care (01) ==
LOC: ED 10:29
DX: J02.9 Acute pharyngitis, unspecified (principal); Z79.899 Other long term (current) drug therapy

== ENCOUNTER 2020-07-29 06:46 | Emergency (ER) | payer OTHER, MEDICAID ==
[2020-07-29 07:14] VITALS: BP 116/70
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
== END 2020-07-29 11:10 | disposition home or self-care (01) ==
LOC: ED 06:46
DX: S16.1XXA Strain of muscle, fascia and tendon at neck level, initial encounter (principal); S39.012A Strain of muscle, fascia and tendon of lower back, initial encounter; Z79.1 Long term (current) use of non-steroidal anti-inflammatories (NSAID); Z79.2 Long term (current) use of antibiotics; Z79.899 Other long term (current) drug therapy; V49.49XA Driver injured in collision with other motor vehicles in traffic accident, initial encounter; Y93.89 Activity, other specified; Y92.410 Unspecified street and highway as the place of occurrence of the external cause; Y99.8 Other external cause status
CPT/HCPCS: 72040; 72070; 72100